=== PATIENT | male | born 1965 | race Caucasian/White ===

== ENCOUNTER → 2017-12-29 | Outpatient (CLI) | payer OTHER ==
[~2017-12-29] MED LIST: Amitriptyline H10 MG PO; OMEPRAZOLE MAGN20 MG; Omeprazole20 M1 PO
[2017-12-29 12:51] LABS: Alanine Aminotransfer (ALT/SGP 144 U/L (12-78); Albumin, Blood 3.6 g/dL (3.4-5.0); Albumin/Globulin Ratio 0.9 (0.8-1.8); Alk Phos 98 U/L (40-126); Anion Gap 14 mmol/L (6-16); Aspartate Aminotrans (AST/SGOT 103 U/L (12-37); Bilirubin, Total 0.5 mg/dL (0.1-1.0); Blood Urea Nitrogen 10 mg/dL (8-24); Bun/Creatinine Ratio 11.2 (12.0-20.0); CO2, Blood 19 mmol/L (21-32); Calcium, Blood 8.4 mg/dL (8.5-10.1); Chloride, Blood 107 mmol/L (98-108); Creatinine, Blood 0.89 mg/dL (0.60-1.20); Globulin, Blood 3.8 g/dL (2.2-4.0); Glomerular Filtration Rate >60 (60-); Glucose, Blood 93 mg/dL (70-99); Potassium, Blood 4.1 mmol/L (3.5-5.5); Sodium, Blood 140 mmol/L (136-145); Total Protein, Blood 7.4 g/dL (6.4-8.2)
[2017-12-29 18:22] LABS: International Normalized Ratio 1.07; Prothrombin Time Results 11.2 Sec (9.7-11.5)
== END | disposition home or self-care (01) ==
LOC: LAB EV 12:34
PROVIDERS: Internal Medicine Gastroenterology
DX: M79.671 Pain in right foot (principal); R74.8 Abnormal levels of other serum enzymes
CPT/HCPCS: 80053; 84550; 85610

== ENCOUNTER 2019-05-03 22:06 | Emergency (ER) | payer OTHER ==
[~2019-05-03] VITALS: Ht 170.2 cm; Wt 78.5 kg
== END 2019-05-04 01:14 | disposition home or self-care (01) ==
LOC: ER 22:06
DX: S61.511A Laceration without foreign body of right wrist, initial encounter (principal); W26.8XXA Contact with other sharp object(s), not elsewhere classified, initial encounter; Z79.899 Other long term (current) drug therapy; K21.9 Gastro-esophageal reflux disease without esophagitis; I10 Essential (primary) hypertension; F32.9 Major depressive disorder, single episode, unspecified; F17.200 Nicotine dependence, unspecified, uncomplicated
CPT/HCPCS: 12002; 90471; 90714; 99282-25

== ENCOUNTER 2021-04-13 20:40 | Emergency (ER) | payer OTHER ==
[~2021-04-13] VITALS: Ht 170.2 cm; Wt 81.7 kg
[2021-04-13] MEDS ORDERED: DOXY100 PO (21:14)
== END 2021-04-13 21:17 | disposition home or self-care (01) ==
LOC: ER 20:40
DX: S60.551A Superficial foreign body of right hand, initial encounter (principal); I10 Essential (primary) hypertension; F17.200 Nicotine dependence, unspecified, uncomplicated; W45.8XXA Other foreign body or object entering through skin, initial encounter
CPT/HCPCS: 10120; 90471; 90714; 99282-25

== ENCOUNTER 2021-04-16 21:52 | Emergency (ER) | payer OTHER ==
[~2021-04-16] VITALS: Ht 170.2 cm; Wt 81.7 kg
[~2021-04-16 21:52] MED LIST changes: +DOXY100 PO
== END 2021-04-17 01:25 | disposition home or self-care (01) ==
LOC: ER 21:52
DX: S46.212A Strain of muscle, fascia and tendon of other parts of biceps, left arm, initial encounter (principal); I10 Essential (primary) hypertension; K21.9 Gastro-esophageal reflux disease without esophagitis; F17.200 Nicotine dependence, unspecified, uncomplicated; Z79.899 Other long term (current) drug therapy; X58.XXXA Exposure to other specified factors, initial encounter; Y93.89 Activity, other specified
CPT/HCPCS: 99283; A9270